=== PATIENT | male | born 1985 | race Caucasian/White ===

== ENCOUNTER 2018-06-03 08:36 | Emergency (ER) | payer MEDICAID, OTHER ==
[~2018-06-03] VITALS: Ht 172.7 cm; Wt 65.0 kg
[2018-06-03] MEDS ORDERED: INSU100V5 IJ (09:56)
[2018-06-03] MEDS ORDERED: LANTUS SQ (09:56)
[2018-06-03 10:05] VITALS: BP 137/74
[2018-06-03] MEDS ORDERED: insulin regular, human 10 units/0.1 ml syringe SQ ONE (10:05)
== END 2018-06-03 11:03 | disposition home or self-care (01) ==
LOC: ER 08:36
DX: E10.65 Type 1 diabetes mellitus with hyperglycemia (principal)
CPT/HCPCS: 82948; 96372; 99283; J1815